=== PATIENT | female | born 1970 | race African-American/Black ===

== ENCOUNTER 2017-10-16 22:12 | Emergency (ER) | payer SELFPAY | END 2017-10-17 00:03 | disposition home or self-care (01) | LOC: M ED 10-17 00:03 | DX: F60.9 Personality disorder, unspecified (principal); Z59.0 Homelessness | CPT/HCPCS: 99282 ==

== ENCOUNTER 2017-11-04 12:39 | Inpatient (IN) | payer SELFPAY ==
[2017-11-04] MEDS: HALOPERIDOL 5 MG/ML VIAL (J1630) IM (15:05)
[2017-11-04] MEDS: diphenhydrAMINE INJ 50MG/ML VIAL (J1200) IM (15:05)
[2017-11-04] MEDS: LORazepam 2 MG/ML VIAL (J2060) IM (15:05)
[2017-11-04 15:32] LABS: HEMATOCRIT 34.7 % (36.0-47.0); HEMOGLOBIN 11.4 g/dl (12.0-15.5); MEAN CORPUSCULAR HEMOGLOBIN 27.1 pg (27.0-33.0); MEAN CORPUSCULAR HGB CONC 32.9 g/dl (32.0-36.5); MEAN CORPUSCULAR VOLUME 82.4 fl (80.0-96.0); PLATELET COUNT, AUTOMATED 248 10^3/uL (150-450); RED BLOOD COUNT 4.21 10^6/uL (4.00-5.40); RED CELL DISTRIBUTION WIDTH 14.6 % (11.5-14.5); WHITE BLOOD COUNT 7.3 10^3/uL (4.0-10.0)
[2017-11-04 15:43] LABS: CONTROL LINE HCG INT CTR LINE PRESENT; HCG, SERUM QUALITATIVE NEGATIVE (NEGATIVE)
[2017-11-04 15:55] LABS: ALBUMIN 3.3 GM/DL (3.2-5.2); ALBUMIN/GLOBULIN RATIO 0.87 (1.00-1.93); ALKALINE PHOSPHATASE 60 U/L (45-117); ALT/SGPT 19 U/L (12-78); ANION GAP 9 MEQ/L (8-16); AST/SGOT 16 U/L (7-37); BILIRUBIN,DIRECT < 0.1 MG/DL (0.0-0.2); BILIRUBIN,TOTAL 0.3 MG/DL (0.2-1.0); BLOOD UREA NITROGEN 19 MG/DL (7-18); CALCIUM LEVEL 8.4 MG/DL (8.5-10.1); CARBON DIOXIDE LEVEL 25 MEQ/L (21-32); CHLORIDE LEVEL 111 MEQ/L (98-107); ETHYL ALCOHOL (ETHANOL) 0.004 % (0.000-0.010); GLOMERULAR FILTRATION RATE > 60.0 (>58); GLUCOSE, FASTING 75 MG/DL (70-100); POTASSIUM SERUM 3.8 MEQ/L (3.5-5.1); SALICYLATE LEVEL < 1.7 MG/DL (5.0-30.0); SODIUM LEVEL 145 MEQ/L (136-145); THYROID STIMULATING HORMONE 0.939 uIU/ML (0.358-3.740); TOTAL PROTEIN 7.1 GM/DL (6.4-8.2)
[2017-11-04 15:56] LABS: ACETAMINOPHEN LEVEL < 2.0 UG/ML (10.0-30.0)
[2017-11-04 18:40] LABS: AMPHETAMINES LEVEL URINE NEGATIVE (NEGATIVE); BARBITURATES URINE NEGATIVE (NEGATIVE); BENZODIAZEPINES URINE NEGATIVE (NEGATIVE); CANNABINOIDS URINE NEGATIVE (NEGATIVE); COCAINE METABOLITE URINE NEGATIVE (NEGATIVE); METHADONE URINE NEGATIVE (NEGATIVE); OPIATES URINE NEGATIVE (NEGATIVE); PHENCYCLIDINE URINE NEGATIVE (NEGATIVE)
[2017-11-04] MEDS ORDERED: MAALOX 30 ML SUSP *UDC PO (20:45)
[2017-11-04] MEDS ORDERED: NICOTINE 21MG/24HR 1 EA TRANSDERMAL TD (20:45)
[2017-11-04] MEDS ORDERED: ACETAMINOPHEN TAB 650MG DOSE (2X325MG) PO (20:45)
[2017-11-04] MEDS ORDERED: MOM 30ML SUSPENSION UDC PO (20:45)
[2017-11-04] MEDS ORDERED: diphenhydrAMINE 25 MG CAP PO (20:45)
[2017-11-04] MEDS ORDERED: traZODone 50 MG TAB PO (20:45)
[2017-11-04] MEDS: OLANZapine ORAL DISINTEGRATING TAB 5MG PO (21:00)
[2017-11-05] MEDS: OLANZapine ORAL DISINTEGRATING TAB 5MG PO ×3 (09:00→21:00)
[2017-11-06] MEDS: OLANZapine ORAL DISINTEGRATING TAB 5MG PO ×2 (09:00→21:00)
[2017-11-07] MEDS: OLANZapine ORAL DISINTEGRATING TAB 5MG PO ×2 (09:00→20:36)
[2017-11-08] MEDS: OLANZapine ORAL DISINTEGRATING TAB 5MG PO (08:46)
== END 2017-11-08 11:00 | disposition home or self-care (01) | DRG 760 ==
LOC: M ED 12:39 → M ED INP 20:39 → M PSY 22:47
DX: F22 Delusional disorders (principal)

== ENCOUNTER 2017-11-09 09:46 | Emergency (ER) | payer SELFPAY ==
[2017-11-09] MEDS ORDERED: LORazepam 2 MG/ML VIAL (J2060) IM (11:15)
[2017-11-09] MEDS ORDERED: HALOPERIDOL 5 MG/ML VIAL (J1630) IM (11:15)
== END 2017-11-09 13:41 | disposition home or self-care (01) ==
LOC: M ED 09:46
DX: Z59.0 Homelessness (principal)
CPT/HCPCS: 99284

== ENCOUNTER 2017-12-08 20:19 | Emergency (ER) | payer SELFPAY | END 2017-12-08 21:54 | disposition home or self-care (01) | LOC: M ED 20:19 | DX: F99 Mental disorder, not otherwise specified (principal); Z59.0 Homelessness | CPT/HCPCS: 99284 ==